=== PATIENT | male | born 1995 | race American Indian/Alaskan Native ===

== ENCOUNTER 2017-11-27 11:41 | Emergency (ER) | payer BC ==
[2017-11-27 11:47] VITALS: BMI 27.0
[2017-11-27 11:48] VITALS: BP 121/71; PULSE 59; RESP 16; TEMP 98.3; O2SAT 100
--- NOTE | 2017-11-27 13:24 | C.PDOC ---
History Of Present Illness 22 year old male presents to the ED for evaluation of B/L hand pain for the past 2 weeks. Patient reports he has been boxing, stopped hitting the heavy bag and was just shadow boxing but his pain has been worsening. Pain is mostly located on his left 5th digit and right 2nd and 3rd digits. Patient denies weakness, numbness, trauma, fall, injury. Time Seen by Provider: 11/27/17 12:07 Chief Complaint (Nursing): Finger,Hand,&Wrist History Per: Patient History/Exam Limitations: no limitations Onset/Duration Of Symptoms: Days Current Symptoms Are (Timing): Still Present Quality: "Pain" Recent travel outside of the [place]: No Additional History Per: Patient Past Medical History Reviewed: Historical Data, Nursing Documentation, Vital Signs Vital Signs: Last Vital Signs Temp 98.3 F 11/27/17 11:47 Pulse 59 L 11/27/17 11:47 Resp 16 11/27/17 11:47 BP 121/71 11/27/17 11:47 Pulse Ox 100 11/28/17 18:57 - Medical History PMH: No Chronic Diseases Surgical History: No Surg Hx Family History: States: Unknown Family Hx - Social History Hx Alcohol Use: No Hx Substance Use: No - Immunization History Hx Tetanus Toxoid Vaccination: No Hx Influenza Vaccination: No Hx Pneumococcal Vaccination: No Review Of Systems Constitutional: Negative for: Fever, Chills Musculoskeletal: Positive for: Arm Pain Skin: Negative for: Rash Neurological: Negative for: Weakness, Numbness Physical Exam - Physical Exam Appears: Non-toxic, No Acute Distress Skin: Normal Color, Warm, Dry Eye(s): bilateral: Normal Inspection Extremity: Normal ROM, Tenderness (mild tenderness to right proximal 2nd and 3rd phalanges and left 5th finger), No Calf Tenderness, Capillary Refill (< 2 seconds), No Deformity, No Swelling, Other (from at bilateral wrists) Extremity: Bilateral: Atraumatic Pulses: Left Radial: Normal, Right Radial: Normal Neurological/Psych: Oriented x3, Normal Speech, Normal Cognition Gait: Steady ED Course And Treatment O2 Sat by Pulse Oximetry: 100 (On RA) Pulse Ox Interpretation: Normal Medical Decision Making Medical Decision Making: Plan: * B/hands X-Ray * Motrin 600 mg PO no acute fracutre seen on xray, d/c home. f/u hand surgeon Disposition Counseled Patient/Family Regarding: Studies Performed, Diagnosis, Need For Followup, Rx Given - Disposition Referrals: Adan Carrizales MD [Staff Provider] - Disposition: HOME/ ROUTINE Disposition Time: 13:52 Condition: GOOD Additional Instructions: Do not box until seen by hand surgeon. Ibuprofen for pain if needed. Prescriptions: Ibuprofen [Motrin] 600 mg PO TID #30 tab Forms: [facility] (Faroese), General Discharge Instructions - Clinical Impression Clinical Impression: Bilateral hand pain - PA / ASSORTER LAUNDRY / Resident Statement / has reviewed & agrees with the documentation as recorded. - Scribe Statement The provider has reviewed the documentation as recorded by the Scribe Alfred Washington All medical record entries made by the Scribe were at my direction and personally dictated by me. I have reviewed the chart and agree that the record accurately reflects my personal performance of the history, physical exam, medical decision making, and the department course for this patient. I have also personally directed, reviewed, and agree with the discharge instructions and disposition.
--- NOTE | 2017-11-27 13:50 | RAD ---
PROCEDURE: Bilateral hand radiographs. HISTORY: left 5th finger, right 34d and 4thin finger COMPARISON: None available. FINDINGS: BONES: Right Hand: No acute displaced fracture. Left Hand: No acute displaced fracture. Postsurgical changes noted about the proximal 1st phalanx. JOINTS: Right Hand: No dislocation. Left Hand: No dislocation. SOFT TISSUES: Right Hand: Unremarkable. No evidence of radiopaque foreign body. Left Hand: Unremarkable. No evidence of radiopaque foreign body. OTHER FINDINGS: None. IMPRESSION: No acute displaced fracture identified.
== END 2017-11-27 14:08 | disposition home or self-care (01) ==
LOC: C.ER 11:41
DX: M79.642 Pain in left hand (principal); M79.641 Pain in right hand